=== PATIENT | female | born 1970 | race Caucasian/White ===

== ENCOUNTER 2018-10-27 12:49 | Emergency (ER) | payer MEDICAID ==
[~2018-10-27] VITALS: Ht 160 cm; Wt 77.6 kg
[2018-10-27] MEDS ORDERED: DEXAMETHASONE SOD PHOS 20 MG/5 ML VIAL. IM ONE (13:45)
[2018-10-27] MEDS ORDERED: FAMO20TA5 PO (14:17)
[2018-10-27] MEDS ORDERED: DIPH25CA58 PO (14:17)
[2018-10-27] MEDS ORDERED: PRED-220 PO (14:17)
--- NOTE | 2018-10-27 14:17 | PHYS DOC ---
Past Medical History Past Medical History: Asthma, GERD Past Surgical History: Alcohol Use: None Drug Use: None Adult General Chief Complaint Chief Complaint: SKIN RASH/ABSCESS HPI HPI Patient is a 48 year old female with no significant medical history who presents to the ED today complaining of poison monique rash that began yesterday after going for a nature walk. Review of Systems Review of Systems Constitutional: Denies fever or chills [] Musculoskeletal: Denies back pain or joint pain [] Integument: Reports rash Neurologic: Denies headache, focal weakness or sensory changes [] All other systems were reviewed and found to be within normal limits, except as documented in this note. Current Medications Current Medications Current Medications Medications (Trade) Dose Ordered Sig/Daniel Start Time Stop Time Status Last Admin Dose Admin Dexamethasone Sodium Phosphate (Decadron) 10 mg 1X ONCE 10/27/18 13:45 10/27/18 14:03 DC Allergies Allergies Allergies Coded Allergies Type Severity Reaction Last Updated Verified chlorzoxazone Allergy Intermediate tachycardia 10/27/18 Yes cyclobenzaprine Allergy Intermediate seizure 10/27/18 Yes Physical Exam Physical Exam Constitutional: Well developed, well nourished, no acute distress, non-toxic appearance. [] Skin: Mild amount of thin erythematous rash in patient's bilateral upper and lower extremities, trace amount of similar rash on the right eyebrow. No rash in the eye. Back: No tenderness, no CVA tenderness. [] Extremities: No tenderness, no cyanosis, no clubbing, ROM intact, no edema. [] Neurologic: Alert and oriented X 3, normal motor function, normal sensory function, no focal deficits noted. [] Psychologic: Affect normal, judgement normal, mood normal. [] Current Patient Data Vital Signs Vital Signs Date Time Temp Pulse Resp B/P (MAP) Pulse Ox O2 Delivery O2 Flow Rate FiO2 10/27/18 13:10 98.3 63 18 114/58 (76) 97 Room Air 98.3 EKG EKG [] Radiology/Procedures Radiology/Procedures [] Course & Med Decision Making Course & Med Decision Making Pertinent Labs and Imaging studies reviewed. (See chart for details) This is a 48-year-old female patient presented to the ED with contact dermatitis rash from poison monique. Discharged on prednisone and Benadryl and Pepcid. Follow up with inspector barrel in 2 weeks as needed. Dragon Disclaimer Dragon Disclaimer This electronic medical record was generated, in whole or in part, using a voice recognition dictation system. Departure Departure Impression: Primary Impression: Contact dermatitis due to poison monique Disposition: 01 HOME, SELF-CARE Condition: STABLE Referrals: ZELDA JAMA MD (PCP) Follow-up in 2-4 weeks NATALIYA SOSA MD follow-up in 2-4 weeks Patient Instructions: Poison Monique, Elug-do-Frut Additional Instructions: You were evaluated in the medicine for contact dermatitis rash from poison monique. Take the prescribed medications as ordered. You can follow-up with your own doctor the provided inspector barrel in 2-4 weeks as needed Scripts Diphenhydramine Hcl (BENADRYL) 25 Mg Capsule 1 CAP PO Q6HRS, #30 CAP 1 Refill Prov: SABIHA LEPE APRN 10/27/18 Famotidine (FAMOTIDINE) 20 Mg Tablet 20 MG PO DAILY, #7 TAB Prov: SABIHA LEPE APRN 10/27/18 Prednisone (PREDNISONE ) 10 Mg Tablet 10 MG PO UD for PREDNISONE TAPER, #39 TAB 0 Refills Take 3 tablets by mouth twice a day for 3 days, then take 2 tablets by mouth twice a day for 3 days, then take 1 tablet by mouth twice a day for 3 days, then take 1 tablet by mouth daily x 3 days, then stop. Prov: SABIHA LEPE APRN 10/27/18 SABIHA LEPE APRN October 27, 2018 14:17
[2018-10-27 14:30] VITALS: BP 122/78
== END 2018-10-27 14:39 | disposition home or self-care (01) ==
LOC: ER 12:49
DX: L23.7 Allergic contact dermatitis due to plants, except food (principal); J45.909 Unspecified asthma, uncomplicated; K21.9 Gastro-esophageal reflux disease without esophagitis; Z88.8 Allergy status to other drugs, medicaments and biological substances
CPT/HCPCS: 96372; 99283; J1100

== ENCOUNTER → 2018-11-25 | Day surgery (SDC) | payer MEDICAID, OTHER ==
[~2018-11-25] MED LIST: ALBU2.5V8 INH; BACL10TA PO; BREX2TAB PO; CELE200C PO; CETI10TA16 PO; CLON0.5T11 PO; DIPH25CA58 PO; FAMO20TA5 PO; GABA600T7 PO; HYDROmorphone 2 MG/ML VIAL IV PRN; IV RINGERS,LACTATED 1000ML 1,000 ML IV SCH; LIDOCAINE 1% PF 2 ML VIAL. ID PRN; MOME13HF2 IH; MORPHINE SULFATE 2 MG/ML VIAL. IV PRN; ONDANSETRON PF 4 MG/2 ML VIAL. IV PRN; PANT20TA2 PO; PRED-220 PO; PROCHLORPERAZINE 10 MG/2 ML VIAL. IV PRN; PROP10TA PO; PROPOFOL 40 ML IV ONE; SERT100T PO; SIMV20TA3 PO; SOLI10TA7 PO; TRAZ-86 PO; fentaNYL PF VIAL 100 MCG/2 ML VIAL IV PRN
[2018-11-25 08:45] LABS: U PREG PATIENT NEGATIVE (NEG)
[2018-11-25 10:13] VITALS: BP 93/62
--- NOTE | 2018-11-26 14:06 | PATHOLOGY ---
[facility] Accession Number: [id number] . 01 Material submitted: . PART A: small bowel - SMALL BOWEL BIOPSY PART B: stomach - GASTRIC ANTRUM PART C: esophagus - BIOPSY DISTAL ESOPHAGUS. Modifiers: distal PART D: esophagus - BIOPSY MID ESOPHAGUS. Modifiers: mid . 01 Clinical history: . Dysphasia, history of colon polyps. . 02 Diagnosis: A. Small bowel biopsies: - No significant pathologic abnormalities. . B. Gastric biopsies, antrum: - Consistent with mild reactive gastropathy. . C. Esophageal biopsies, distal esophagus: - Segments of hyperplastic squamous esophageal mucosa with focally contiguous gastric mucosa showing mild chronic inflammation, consistent with reflux esophagitis. . D. Esophageal biopsies, middle esophagus: - Segments of mildly hyperplastic squamous esophageal mucosa consistent with reflux changes. . (JPM:mmdomingo; 11/26/2018) [facility]/11/26/2018 . 02 Comment: Sections of the small bowel biopsy reveal segments of duodenal mucosa. Where best oriented, the mucosal villi show no sprue-like changes or significant inflammatory changes. . Sections of the gastric antral biopsy show congestion, mild foveolar hyperplasia, and focal slight chronic inflammation. An immunoperoxidase stain for Helicobacter is negative for Helicobacter organisms. The findings are consistent with a mild reactive gastropathy. . Sections of the distal esophageal biopsy reveal segments of focally tangentially-oriented hyperplastic squamous esophageal mucosa with focally contiguous gastric mucosa showing mild chronic inflammation, consistent with reflux esophagitis. There is no evidence of Todd's change, dysplasia, or malignancy. . Sections of the middle esophagus biopsy reveal segments of tangentially-oriented mildly hyperplastic squamous esophageal mucosa consistent with reflux changes. There is no evidence of Todd's change, dysplasia, or malignancy. . Special stain performed (B1): Immunoperoxidase stain for Helicobacter . (JPM:mml; 11/26/2018) . 02 Electronically signed: . Noah Hernandez MD, Pathologist NPI- [id number] . 01 Gross description: . A. Received in formalin labeled "Michael, Aleyda, small bowel BX" is a 0.6 x 0.4 x 0.1 cm aggregate of maddox-brown mucosa fragments. The specimen is submitted in A1. . B. Received in formalin labeled "Swarnes, Aleyda, gastric antrum" is a 0.6 x 0.3 x 0.2 cm fragment of maddox-brown mucosa. The specimen is submitted in B1. . C. Received in formalin labeled "Swarnes, Aleyda, BX distal esophagus" is a 0.9 x 0.3 x 0.1 cm aggregate of maddox-brown mucosa fragments. The specimen is submitted in C1. . D. Received in formalin labeled "Swarnes, Aleyda, BX mid esophagus" is a 0.3 x 0.3 x 0.2 cm aggregate of maddox-brown mucosa fragments. The specimen is submitted in D1. ([facility] [place]; 11/25/2018) SY/SYC . 02 Pathologist provided ICD-10: K31.9, K21.0, R13.10 . 02 CPT . 784604, 965269, 596001, 153464, [id number] Specimen Comment: A courtesy copy of this report has been sent to Specimen Comment: [phone], . Specimen Comment: Report sent to Performed at: 01 [facility] [address], [place] [id number] MD Rory Newman MD Phone: [phone] Performed at: 02 [facility] [address] [place], [place] [id number] MD Noah Hernandez MD Phone: [phone]
== END ==
LOC: ENDOS 08:07
PROVIDERS: ATTEND Internal Medicine Gastroenterology
DX: K64.0 First degree hemorrhoids (principal); K64.8 Other hemorrhoids; K29.70 Gastritis, unspecified, without bleeding; K21.0 Gastro-esophageal reflux disease with esophagitis; K44.9 Diaphragmatic hernia without obstruction or gangrene; F17.210 Nicotine dependence, cigarettes, uncomplicated; K31.89 Other diseases of stomach and duodenum; K22.2 Esophageal obstruction; Z86.010 Personal history of colon polyps; Z88.8 Allergy status to other drugs, medicaments and biological substances; D64.9 Anemia, unspecified; F41.9 Anxiety disorder, unspecified; M19.90 Unspecified osteoarthritis, unspecified site; J45.909 Unspecified asthma, uncomplicated; F32.9 Major depressive disorder, single episode, unspecified; K21.9 Gastro-esophageal reflux disease without esophagitis; E78.00 Pure hypercholesterolemia, unspecified; Z82.49 Family history of ischemic heart disease and other diseases of the circulatory system; Z83.71 Family history of colonic polyps; Z79.899 Other long term (current) drug therapy; Z90.49 Acquired absence of other specified parts of digestive tract; Z98.890 Other specified postprocedural states
CPT/HCPCS: 43239; 43450; 45378; 81025; 88305; 88342; J2704

== ENCOUNTER 2019-01-09 11:43 | Emergency (ER) | payer MEDICAID ==
[~2019-01-09] VITALS: Ht 162.6 cm; Wt 77.6 kg
[~2019-01-09 11:43] MED LIST changes: -HYDROmorphone 2 MG/ML VIAL IV PRN; -IV RINGERS,LACTATED 1000ML 1,000 ML IV SCH; -LIDOCAINE 1% PF 2 ML VIAL. ID PRN; -MORPHINE SULFATE 2 MG/ML VIAL. IV PRN; -ONDANSETRON PF 4 MG/2 ML VIAL. IV PRN; -PROCHLORPERAZINE 10 MG/2 ML VIAL. IV PRN; -PROPOFOL 40 ML IV ONE; -fentaNYL PF VIAL 100 MCG/2 ML VIAL IV PRN
[2019-01-09 11:55] VITALS: BP 122/60
[2019-01-09] MEDS ORDERED: CEPHALEXIN 250 MG CAPSULE. PO STA (12:29)
[2019-01-09] MEDS ORDERED: CEPH500C PO (12:54)
[2019-01-09] MEDS ORDERED: SULF1TAB24 PO (12:54)
--- NOTE | 2019-01-09 12:54 | PHYS DOC ---
Past Medical History Past Medical History: Asthma, GERD Past Surgical History: Alcohol Use: None Drug Use: None Adult General Chief Complaint Chief Complaint: FOOT INJURY PAIN HPI HPI Patient is a 48 year old female with history of asthma, acid reflex, who presents to the ED today with an infected left great toe. Patient states symptoms began a couple days ago, she states yesterday she noted her left great toenail was "" and she decided to cut three quarters of it out. She states this morning she woke up and noted redness and y pus around the area she cut the nail. Denies any fever. Denies any nausea, vomiting. Review of Systems Review of Systems Constitutional: Denies fever or chills [] Musculoskeletal: Denies back pain or joint pain [] Integument: Infected left great toe Neurologic: Denies headache, focal weakness or sensory changes [] All other systems were reviewed and found to be within normal limits, except as documented in this note. Current Medications Current Medications Current Medications Medications (Trade) Dose Ordered Sig/Daniel Start Time Stop Time Status Last Admin Dose Admin Acetaminophen/ Hydrocodone Bitart (Lortab 5/325) 2 tab 1X ONCE 01/09/19 13:00 01/09/19 13:01 01/09/19 12:38 2 TAB Cephalexin HCl (Keflex) 500 mg 1X STAT 01/09/19 12:29 01/09/19 12:32 DC 01/09/19 12:38 500 MG Diphtheria/ Tetanus/Acell Pertussis (Boostrix) 0.5 ml ONCE ONCE 01/09/19 13:00 01/09/19 13:01 01/09/19 12:38 0.5 ML Trimethoprim/ Sulfamethoxazole (Bactrim Ds) 1 tab 1X ONCE 01/09/19 13:00 01/09/19 13:01 01/09/19 12:38 1 TAB Allergies Allergies Allergies Coded Allergies Type Severity Reaction Last Updated Verified chlorzoxazone Allergy Intermediate tachycardia 10/27/18 Yes cyclobenzaprine Allergy Intermediate seizure 10/27/18 Yes Physical Exam Physical Exam Constitutional: Well developed, well nourished, no acute distress, non-toxic appearance. [] Skin: Left great toe with mild swelling around the nail bed. Three quarters of the nail is missing. There is pus trace amount coming out of the area with a missing toenail. I did try to express the pus out, small amount came out. There is cellulitis around the nail bed area. Neurovascular exam is intact to the left great toe. +2 left pedal pulse. Back: No tenderness, no CVA tenderness. [] Extremities: No tenderness, no cyanosis, no clubbing, ROM intact, no edema. [] Neurologic: Alert and oriented X 3, normal motor function, normal sensory function, no focal deficits noted. [] Psychologic: Affect normal, judgement normal, mood normal. [] Current Patient Data Vital Signs Vital Signs Date Time Temp Pulse Resp B/P (MAP) Pulse Ox O2 Delivery O2 Flow Rate FiO2 01/09/19 12:38 14 99 Room Air 01/09/19 11:55 98.3 58 122/60 (80) 98.3 EKG EKG [] Radiology/Procedures Radiology/Procedures [] Course & Med Decision Making Course & Med Decision Making Pertinent Labs and Imaging studies reviewed. (See chart for details) This is a 48-year-old female patient presenting to the ED today with an infected left great toe. Patient herself cut out 3/4s of the affected nail. I had expressed some of the pus out of the toe. Patient was discharged on Bactrim and cephalexin. Tetanus updated. Provided wound care instructions. Follow-up with reading professor. Sarina Disclaimer Sarina Disclaimer This electronic medical record was generated, in whole or in part, using a voice recognition dictation system. Departure Departure Impression: Primary Impression: Infected nailbed of toe Disposition: 01 HOME, SELF-CARE Condition: STABLE Referrals: ZELDA JAMA MD (PCP) follow up in one week AYAZ MANN DPM follow up in one week Patient Instructions: Infected Ingrown Toenail Additional Instructions: You were evaluated in the emergency room with an infected toe. Please follow-up with your own primary care doctor or reading professor. Please soak the affected right toe in warm water with Epsom salts twice a day. Keep the area clean and dry. Complete your antibiotics. Scripts Hydrocodone/Apap 5-325 (NORCO 5-325 TABLET) 1 Each Tablet 1 TAB PO Q6HRS, #14 TAB Prov: SABIHA LEPE APRN 01/09/19 Sulfamethoxazole/Trimethoprim (BACTRIM DS TABLET) 1 Each Tablet 1 TAB PO BID, #20 TAB Prov: MUTUNGA,SABIHA [employer] ACCOUNT EXECUTIVE 01/09/19 Cephalexin (CEPHALEXIN) 500 Mg Capsule 1 CAP PO QID, #40 CAP Prov: SABIHA LEPE APRN 01/09/19 Problem Qualifiers Primary Impression: Infected nailbed of toe Laterality: left Qualified Codes: L03.032 - Cellulitis of left toe SABIHA LEPE APRN Jan 09, 2019 12:54
[2019-01-09] MEDS ORDERED: HYDR-3164 PO (12:57)
[2019-01-09] MEDS ORDERED: HYDROcodone/APAP 5/325MG 1 TAB TABLET PO ONE (13:00)
[2019-01-09] MEDS ORDERED: SMZ/TMP 800/160MG TABLET. PO ONE (13:00)
[2019-01-09] MEDS ORDERED: DIPHTH,PERTUSS(ACELL),TET TOX 0.5 ML DISP.SYRIN. VAX IM ONE (13:00)
== END 2019-01-09 13:00 | disposition home or self-care (01) ==
LOC: ER 11:43
DX: L03.032 Cellulitis of left toe (principal); K21.9 Gastro-esophageal reflux disease without esophagitis; J45.909 Unspecified asthma, uncomplicated; Z88.8 Allergy status to other drugs, medicaments and biological substances
CPT/HCPCS: 90471; 90715; 99284

== ENCOUNTER → 2019-01-27 | Outpatient (CLI) | payer MEDICAID ==
[2019-01-09 11:55] VITALS: BP 122/60
[~2019-01-27] MED LIST changes: +BARIUM SULFATE 340 GM SUSPENSION. PO ONE; +BARIUM SULFATE 60% 355 ML SUSP PO ONE; +BARIUM SULFATE 96% 397 GM ENEMA. PR ONE; +CEPH500C PO; +CLON-77 PO; -CLON0.5T11 PO; +HYDR-3164 PO; +SIMETHICONE/SOD BICARB/CITRIC ACID PACKET. PO ONE; +SULF1TAB24 PO
--- NOTE | 2019-01-27 10:50 | RAD ---
Examination: ESOPHAGRAM/BARIUM SWALLOW History: Dysphagia for the past 6 months. Comparison/Correlation: None Findings: Barium swallow esophagram exam was performed with air contrast and single contrast technique. Barium pill was also administered. Fluoroscopy was utilized for 1.2 minutes. 14 fluoroscopic images were obtained. Esophageal motility is normal. No stricture or suspicious filling defect. No webs or diverticuli identified. When a barium pill was administered without contrast, it was lodged at the thoracic inlet level. Small amount of contrast was administered and it persisted. Large amount of contrast was administered orally and it was then dislodged and had normal transit to the stomach. Prone Valsalva drinking views were obtained. Small sliding hiatal hernia is noted. Reflux is not demonstrated on this exam. Impression: No suspicious filling defects or strictures. Barium pill is noted at the thoracic inlet level although it clears after drinking oral contrast. Electronically signed by: Valentin Dior MD (01/27/2019 10:48 AM) [facility]
== END | disposition home or self-care (01) ==
LOC: RAD 09:47
PROVIDERS: ATTEND Family Medicine Adult Medicine
DX: K44.9 Diaphragmatic hernia without obstruction or gangrene (principal); R13.10 Dysphagia, unspecified
CPT/HCPCS: 74220